=== PATIENT | male | born 1980 | race American Indian/Alaskan Native ===

== ENCOUNTER 2016-11-20 16:58 | Emergency (ER) | payer OTHER ==
[2016-11-20] MEDS ORDERED: Lidocaine 1% 10 ML MDV INJECT ONE (17:18)
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
[2016-11-20 17:23] VITALS: BP 128/74
[2016-11-20] MEDS ORDERED: Lidocaine 1% 50 ML MDV ONE (17:40)
== END 2016-11-20 18:30 | disposition home or self-care (01) ==
LOC: JD.ED 16:58
PROC: 0HQFXZZ Repair Right Hand Skin, External Approach (ICD-10-PCS; principal; 2016-11-20)
DX: S61.411A Laceration without foreign body of right hand, initial encounter (principal); W23.0XXA Caught, crushed, jammed, or pinched between moving objects, initial encounter; Y92.69 Other specified industrial and construction area as the place of occurrence of the external cause; Y99.0 Civilian activity done for income or pay
CPT/HCPCS: 11200; 12001; 99282-25; 99283-25

== ENCOUNTER 2016-12-01 13:29 | Emergency (ER) | payer OTHER ==
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
== END 2016-12-01 14:39 | disposition home or self-care (01) ==
LOC: JD.ED 13:29
CPT/HCPCS: 99283

== ENCOUNTER 2023-05-24 11:13 | Emergency (ER) | payer OTHER ==
[2023-05-24] MEDS ORDERED: Sodium Chloride 0.9% 10 ML Syringe FLUSH PRN (11:26)
[2023-05-24 11:39] LABS: BASE EXCESS ARTERIAL 0.3 (-2-2.0); BICARBONATE,ARTERIAL 24.2 meq/L (22.0-26.0); O2 SATURATION ARTERIAL 95.8 % (96.0-97.0); PCO2 ARTERIAL 38.7 mmHg (35.0-45.0)
[2023-05-24 11:42] LABS: CARBOXYHEMOGLOBIN 2.4 %THgb (0.00-1.50); METHEMOGLOBIN 0.1 % (0.00-1.5); OXYHEMOGLOBIN 93.5; TOTAL HEMOGLOBIN 15.5 g/L (12.0-18.0)
[2023-05-24] MEDS ORDERED: Albuterol/Ipratropium 3.0-0.5 MG/3 ML Neb Soln NEB PRN (12:00)
[2023-05-24 12:28] LABS: HEMATOCRIT 44.6 % (42.0-52.0); HEMOGLOBIN 15.9 gm/dl (14.0-18.0); MEAN CORPUSCULAR HEMOGLOBIN 30.2 pg (28.0-32.0); MEAN CORPUSCULAR HGB CONC 35.7 g/dl (32.0-36.0); MEAN CORPUSCULAR VOLUME 84.8 fl (83.0-99.0); MEAN PLATELET VOLUME 9.4 fl (9.4-12.4); PLATELET COUNT,PLT 276 K/mm3 (150-400); RED BLOOD CELL COUNT 5.26 M/mm3 (4.52-5.90); WHITE BLOOD CELL COUNT,WBC 9.37 K/mm3 (3.9-11.3)
[2023-05-24 12:59] LABS: A/G RATIO 0.7 (1-2); ALBUMIN 3.5 g/dl (3.4-5.0); ANION GAP 13.9 (5-15); BILIRUBIN TOTAL 0.5 mg/dL (0.2-1.0); BUN/CREATININE RATIO 21.1 (14-18); CALCIUM 9.6 mg/dL (8.5-10.1); CREATININE 0.9 mg/dL (0.7-1.3); EST CRCL DRUG DOSING (CG) 111.53 mL/min; POTASSIUM,K 3.9 mEq/L (3.5-5.1); PROTEIN TOTAL,TP 8.2 g/dl (6.4-8.2)
[2023-05-24 13:04] LABS: LACTIC ACID 1.1 mmol/L (0.4-2.0)
[2023-05-24] MEDS ORDERED: Albuterol 6.7 GM Inhaler INH PRN ×2 (13:49→13:54)
[2023-05-24] MEDS ORDERED: Dexamethasone 6 MG TABLET PO ONE (13:51)
[2023-05-24 14:03] VITALS: BP 136/92; PULSE 74
[2023-05-24 14:30] LABS: BAND PERCENT MAN 1 % (0-10); BASOPHILS PERCENT MAN 0 (0.2-1.2); EOSINOPHILS PERCENT MAN 1 % (0.8-7.0); LYMPHOCYTES % ATYPICAL MANUAL 3 %; LYMPHOCYTES PERCENT MAN 14 % (20-40); MONOCYTES PERCENT MAN 6 % (2-10)
[2023-05-24 14:32] LABS: PLATELET COUNT ESTIMATE ADEQUATE
== END 2023-05-24 14:14 | disposition home or self-care (01) ==
LOC: JD.ED 11:13
DX: T59.91XA Toxic effect of unspecified gases, fumes and vapors, accidental (unintentional), initial encounter (principal); Z88.8 Allergy status to other drugs, medicaments and biological substances
CPT/HCPCS: 36415; 36600; 71045; 80053; 82803; 83605; 85007; 85027; 93005; 94640; 99284; A9270; J8540; 93010; 99283; J7620-GY